=== PATIENT | male | born 1985 | race Caucasian/White ===

== ENCOUNTER 2019-12-10 13:49 | Inpatient (IN) | payer BC ==
[2019-12-10] VITALS (16 sets, daily range): BP systolic 142; BP diastolic 92; PULSE 92; TEMP 99.5; O2SAT 90–100
[~2019-12-10] VITALS: Ht 167.6 cm; Wt 141.4 kg
[~2019-12-10 13:49] MED LIST: CIPRO500 MG PO; FLOMAX 0.40.4 MG/CAP PO; KEPPRA1000 MG PO; NASONEX SPRAY17 GM NS; NORCO 325 MG-51 TAB PO; NORVASC 10MG10 MG PO; ZOFRAN 4MG T4 MG/TAB PO
[2019-12-10] MEDS ORDERED: ZESTRIL 20MG TA20 MG PO (14:42)
[2019-12-10 14:49] LABS: COLLECTION METHOD CLEAN CATCH
[2019-12-10 14:55] LABS: BASO % 0.4 % (0.0-2.0); GRAN # 7.9 (1.4-6.5); GRAN % 80.3 % (42.2-75.2); HEMATOCRIT 43.5 % (42.0-52.0); HEMOGLOBIN 14.8 g/dl (13.5-18.0); LYMPH # 1.1 (1.2-3.4); LYMPH % 11.4 % (20.0-51.0); MEAN CELL VOLUME 85 fl (80.0-100.0); MEAN CORPUSCULAR HEMOGLOBIN 29 pg (27.0-31.0); MEAN CORPUSCULAR HGB CONC 34 g/dl (33.0-37.0); MEAN PLATELET VOLUME 9.5 fl (7.4-10.4); MONO # 0.7 (0.1-0.6); MONO % 7.2 % (1.7-9.3); PLATELET COUNT 238 K/mm3 (130-400); RED BLOOD COUNT 5.12 M/mm3 (4.20-5.60); REDCELL DISTRIBUTION WIDTH-CV 12.8 % (11.5-14.5)
[2019-12-10 15:00] LABS: ALBUMIN 3.6 gm/dL (3.5-5.0); BILIRUBIN,TOTAL 0.6 mg/dL (0.0-1.0); CALCIUM 8.1 mg/dL (8.4-10.2); CREATININE, serum 0.75 (0.66-1.25); POTASSIUM 4.2 mmol/L (3.4-5.0)
[2019-12-10 15:04] LABS: PH 7 (5-8); SQUAMOUS EPITHELIAL 0-2 /hpf; URINE APPEARANCE Clear; URINE BACTERIA None Seen /hpf; URINE BILIRUBIN Negative (NEGATIVE); URINE BLOOD 1+ (NEGATIVE); URINE COLOR Straw; URINE GLUCOSE Negative (NEGATIVE); URINE KETONE Negative (NEGATIVE); URINE LEUKOCYTE ESTERASE Negative (NEGATIVE); URINE NITRATE Negative (NEGATIVE); URINE PROTEIN(semi-quant) 2+ (NEGATIVE); URINE RBC 0-2 /hpf; URINE UROBILINOGEN Negative (NEGATIVE)
[2019-12-10 15:23] LABS: TROPONIN-I 0.168 ng/mL (0.000-0.035)
[2019-12-10 23:23] LABS: C-REACTIVE PROTEIN 6.2 mg/dL (0.0-0.9)
[2019-12-10 23:34] LABS: TROPONIN-I 0.133 ng/mL (0.000-0.035)
[2019-12-11] VITALS (723 sets, daily range): BP systolic 132–170; BP diastolic 77–110; PULSE 95–110; TEMP 97.7–101; O2SAT 76–99
--- NOTE | 2019-12-11 00:30 | NUR ---
PATIENT HAS PAUSES IN BREATHING BRINGING O2 SATS DOWN TO UPPER 80S. STIMULATE SATS RESTORED TO LOWER 90S. PROVIDER CALLED, ORDER FOR HIGH FLOW NC TO REMEDY WITH STIMULATION.
--- NOTE | 2019-12-11 04:30 | NUR ---
PATIENT CONTINUES TO HAVE RESPIRATORY BREAKS, SATS CONINUE TO UPPER 80S, AND B/PS ARE ELEVATING, PROVIDER CALLED, MED ORDER FOR ELEVATED B/PS ABOVE 180 SYSTOLIC, AND MAINTAIN O2 SATS AT 90 OR ABOVE WITH HIGH FLOW NASAL CANNULA AND STIMULATION.
--- NOTE | 2019-12-11 06:34 | NUR ---
Vancomycin Initial Dosing Pharmacy Note Ordering provider: Winston Doty MD Indication/duration: possible PNA, empiric coverage Relevant comorbidities: new onset cardiomegaly with edema LABS: eCrCl ~ 190 mL/min, fever 101, weight 151 kg Recommendation: Loading dose: 1.5 grams given in ED 12/10/19 @ 16:45 followed by 2g at 23:30 Maintenance dose: 1.5 grams Q8H Trough goal: 15-20 ug/mL with first level to be drawn 12/12/19 @ 07:30 Will continue to follow.
[2019-12-11 06:38] LABS: BASO % 0.4 % (0.0-2.0); GRAN # 4.8 (1.4-6.5); GRAN % 86.5 % (42.2-75.2); HEMATOCRIT 43.1 % (42.0-52.0); HEMOGLOBIN 14.3 g/dl (13.5-18.0); LYMPH # 0.4 (1.2-3.4); LYMPH % 7.9 % (20.0-51.0); MEAN CELL VOLUME 88 fl (80.0-100.0); MEAN CORPUSCULAR HEMOGLOBIN 29 pg (27.0-31.0); MEAN CORPUSCULAR HGB CONC 33 g/dl (33.0-37.0); MONO # 0.3 (0.1-0.6); MONO % 4.7 % (1.7-9.3); PLATELET COUNT 213 K/mm3 (130-400); REDCELL DISTRIBUTION WIDTH-CV 13.4 % (11.5-14.5)
[2019-12-11 06:54] LABS: CALCIUM 7.4 mg/dL (8.4-10.2); CHOLESTEROL RISK RATIO 6.9; CREATININE, serum 0.71 (0.66-1.25); POTASSIUM 4.2 mmol/L (3.4-5.0)
[2019-12-11 07:05] LABS: TROPONIN-I 0.112 ng/mL (0.000-0.035)
--- NOTE | 2019-12-11 10:30 | NUR ---
Pt spouse at bedside not wearing mask for droplet precautions - education provided and spouse stated she was not informed of mask requirement when visitng last night. Pt experiencing dyspnea on exertion and requires several minutes after exertion to catch breath - MD Irvin aware Pt experiencing blood tinged nasal drainage - Hospitalist team aware - [place] added to MAR Pt remains alert and oriented x4, confersation appropriate and no drowsyness obseved although pt states "I didnt sleep last night, I wish I could just sleep". No productive presistent cough continues exacerbated by "breathing treatments". Education provided on BiPap and Mechanical Ventilation if respiratory status declines, education provided on on ABG data and indications.
--- NOTE | 2019-12-11 16:40 | NUR ---
SENIOR CONTROL SYSTEMS ENGINEER student met with the patient to complete initial assessment. The patient lives in [place] with his , Gloria. The patient does not use DME and reports independence with ADLs. The patient's PCP is Dr. Fisher and the patient receives medications from [facility] with no difficulties. The patient does not have advanced directives in the EMR. DPOA-HC form provided. The patient plans to return home upon discharge with Gloria providing transportation. There are no additional needs at this time.
[2019-12-11 18:09] LABS: RHEUMATOID FACTOR-SCREEN <15 IU/mL (0-29)
[2019-12-12] VITALS (857 sets, daily range): BP systolic 110–192; BP diastolic 60–124; PULSE 83–105; TEMP 98–99.2; O2SAT 68–100
--- NOTE | 2019-12-12 03:00 | NUR ---
PATIENT CONTINUES TO HAVE LABORED BREATHING, SWEATING 2ND NIGHT, TONIGHT COUGHING BLOODY SPUTUM, COLLECTED AND SENT TO LAB, WILL CONTINUE TO MONITOR
--- NOTE | 2019-12-12 04:20 | NUR ---
PATIENT CONTINUES TO HAVE PAUSES IN RESPIRATORY EFFORT, THEN RAPID BREATHING, TO MAINTAIN SATS OR HAVE TO PERFORM EXTERNAL STIMULATION. PATIENT WILL AWAKEN IMMEDIATELY
[2019-12-12 05:02] LABS: BASO % 0.2 % (0.0-2.0); GRAN # 5.6 (1.4-6.5); GRAN % 85.2 % (42.2-75.2); HEMATOCRIT 47.8 % (42.0-52.0); HEMOGLOBIN 15.4 g/dl (13.5-18.0); LYMPH # 0.5 (1.2-3.4); LYMPH % 8.3 % (20.0-51.0); MEAN CELL VOLUME 89 fl (80.0-100.0); MEAN CORPUSCULAR HEMOGLOBIN 29 pg (27.0-31.0); MEAN CORPUSCULAR HGB CONC 32 g/dl (33.0-37.0); MEAN PLATELET VOLUME 9.1 fl (7.4-10.4); MONO # 0.4 (0.1-0.6); MONO % 5.8 % (1.7-9.3); PLATELET COUNT 226 K/mm3 (130-400); RED BLOOD COUNT 5.37 M/mm3 (4.20-5.60); REDCELL DISTRIBUTION WIDTH-CV 13.5 % (11.5-14.5)
[2019-12-12 05:12] LABS: CREATININE, serum 0.57 (0.66-1.25); POTASSIUM 4.5 mmol/L (3.4-5.0)
--- NOTE | 2019-12-12 07:15 | NUR ---
Pt experiencing increased shortness of breath and dyspnea at rest - worsening from yesterday evening. Pt also states bloody sputum for past 4-5days which has remained unreported or not observed by staff until this AM. Pt did have blood tinged nasal mucous yesterday which was reported to MD Allison when consult was called but pt did not report bloody sputum. MD Irvin contacted at this time and aware of increased respiratory effort and bloody sputum - orders recieved.
--- NOTE | 2019-12-12 08:30 | NUR ---
MD Irvin at bedside - plan is to transfer pt to ICU for higher level of care. Spouse at bedside - all questions answered.
[2019-12-12 09:51] LABS: ARTERIAL BLD GAS O2 SATURATION 95.2 % (92-100); ARTERIAL BLD GAS TCO2 CT 32.4; ARTERIAL BLOOD GAS HCO3 30.9 meq/L (22-26); ARTERIAL BLOOD GAS PO2 74.4 mmHg (80-100); ARTERIAL BLOOD GAS pH 7.41 (7.35-7.45)
--- NOTE | 2019-12-12 10:33 | NUR ---
Initial visit; Patient thanked Science Specialist for looking in on him and offering God's blessings and to keep him in her prayers.
--- NOTE | 2019-12-12 11:55 | NUR ---
Vancomycin Follow-up Pharmacy Note Current regimen: 1.5 g IV q8h Vancomycin trough: 13.1 Adjustments: Increase to 1.75 g IV q8h
[2019-12-13] VITALS (900 sets, daily range): BP systolic 144–202; BP diastolic 84–133; PULSE 69–91; TEMP 97.2–99.3; O2SAT 79–100
[2019-12-13 06:09] LABS: ARTERIAL BLD GAS O2 SATURATION 99.2 % (92-100); ARTERIAL BLD GAS TCO2 CT 33.2; ARTERIAL BLOOD GAS BASE EXCESS 5.4 (-2-2); ARTERIAL BLOOD GAS HCO3 31.6 meq/L (22-26); ARTERIAL BLOOD GAS PCO2 52.6 mmHg (35-45)
[2019-12-13 06:38] LABS: HEMATOCRIT 44.5 % (42.0-52.0); HEMOGLOBIN 14.2 g/dl (13.5-18.0); MEAN CELL VOLUME 90 fl (80.0-100.0); MEAN CORPUSCULAR HEMOGLOBIN 29 pg (27.0-31.0); MEAN CORPUSCULAR HGB CONC 32 g/dl (33.0-37.0); MEAN PLATELET VOLUME 9.4 fl (7.4-10.4); PLATELET COUNT 238 K/mm3 (130-400); RED BLOOD COUNT 4.92 M/mm3 (4.20-5.60); REDCELL DISTRIBUTION WIDTH-CV 13.3 % (11.5-14.5)
[2019-12-13 06:40] LABS: ARTERIAL BLOOD GAS PO2 161.9 mmHg (80-100)
[2019-12-13 07:13] LABS: CALCIUM 8.2 mg/dL (8.4-10.2); CREATININE, serum 0.7 (0.66-1.25); POTASSIUM 4.3 mmol/L (3.4-5.0)
[2019-12-13 07:33] LABS: BAND 23 % (0-10); LYMPHOCYTE 16 % (20.0-51.0); NEUTROPHILS 56 % (42.0-75.2); PLATELET ESTIMATE NORMAL (NORMAL)
[2019-12-13 08:33] LABS: HIV 1/2 Antibodies Non-Reactive; HIV-1p24 Antigen Non-Reactive
--- NOTE | 2019-12-13 11:43 | NUR ---
WAREHOUSE ADMINISTRATIVE ASSISTANT student attended clinical rounds with the team. present. Or Manager consulted. counseling services director will continue to follow.
[2019-12-14] VITALS (545 sets, daily range): BP systolic 125–195; BP diastolic 75–117; PULSE 73–97; TEMP 98.6–99.2; O2SAT 81–100
--- NOTE | 2019-12-14 03:32 | NUR ---
Resting in bed with eyes shut. Tolerating Bipap well; will continue to monitor.
[2019-12-14 06:31] LABS: TB GOLD INTERPRETATION Negative (Negative)
[2019-12-14 08:01] LABS: HEMATOCRIT 44.9 % (42.0-52.0); HEMOGLOBIN 14.6 g/dl (13.5-18.0); MEAN CELL VOLUME 89 fl (80.0-100.0); MEAN CORPUSCULAR HEMOGLOBIN 29 pg (27.0-31.0); MEAN CORPUSCULAR HGB CONC 33 g/dl (33.0-37.0); MEAN PLATELET VOLUME 8.9 fl (7.4-10.4); PLATELET COUNT 235 K/mm3 (130-400); RED BLOOD COUNT 5.02 M/mm3 (4.20-5.60); REDCELL DISTRIBUTION WIDTH-CV 13.2 % (11.5-14.5)
--- NOTE | 2019-12-14 08:08 | NUR ---
Alert, awake, denies pain, dangles at bedside eating breakfast. Wore bipap all night per report. Coughing frequently-productive yellow thick sputum. SPO2 on high flow nasal cannula at 8L-95%. Ntg gtt infusing for HTN.
[2019-12-14 08:28] LABS: CALCIUM 8.1 mg/dL (8.4-10.2); CREATININE, serum 0.7 (0.66-1.25); POTASSIUM 4.4 mmol/L (3.4-5.0)
[2019-12-14 08:46] LABS: BAND 5 % (0-10); LYMPHOCYTE 33 % (20.0-51.0); NEUTROPHILS 53 % (42.0-75.2); PLATELET ESTIMATE NORMAL (NORMAL)
--- NOTE | 2019-12-14 11:54 | NUR ---
The patient is to tranfer to medical floor this day. SOFT SUGAR SUPERVISOR student informed medical floor SW.
--- NOTE | 2019-12-14 12:42 | NUR ---
Report called to [facility]. Pt will transfer to room 359 and continue droplet precautions.
--- NOTE | 2019-12-14 12:43 | NUR ---
Room changed to 316
--- NOTE | 2019-12-14 14:48 | NUR ---
Patient arrived to Room 316 this afternoon with his at his side. Patient is oriented to room; call light; and current plan of care. Reviewed with patient the 24 hour urine testing and the need for specimen container and haines bag on ice. Patient quietly verbalizes understanding. He denies any pain/discomfort. Patient is alert and oriented x 3. Skin w/d. Color pale pink. Lungs diminshed throughout the all prado. Continues to have coarse cough with green sputum production at times. HR strong/regular. Abd soft with bowel sounds x 4 quads. Patient denies any problems with constipation. PPP but difficult to find due to size of feet. Noted 1-2 + edema. Patient denies any needs at this time. oriented to the floor, bathroom and call light system. She verbalizes understanding. Will continue to provide for patients needs. Call light in place. Patient remains on droplet isolation. No other needs at this time
[2019-12-15 00:30] VITALS: BP 137/82; PULSE 79; TEMP 97.9
--- NOTE | 2019-12-15 02:32 | NUR ---
ASSESSMENT COMPLETE. RESTING IN BED. DENIES NEEDS AT THIS TIME.
[2019-12-15 04:26] VITALS: BP 138/87; PULSE 74; TEMP 98.1
[2019-12-15 06:46] LABS: HEMATOCRIT 46.4 % (42.0-52.0); HEMOGLOBIN 14.9 g/dl (13.5-18.0); MEAN CELL VOLUME 89 fl (80.0-100.0); MEAN CORPUSCULAR HEMOGLOBIN 29 pg (27.0-31.0); MEAN CORPUSCULAR HGB CONC 32 g/dl (33.0-37.0); MEAN PLATELET VOLUME 9.1 fl (7.4-10.4); PLATELET COUNT 220 K/mm3 (130-400); RED BLOOD COUNT 5.22 M/mm3 (4.20-5.60)
[2019-12-15 07:00] LABS: CALCIUM 8.4 mg/dL (8.4-10.2); CREATININE, serum 0.88 (0.66-1.25)
[2019-12-15 08:51] VITALS: BP 135/91; PULSE 88; TEMP 98.2
--- NOTE | 2019-12-15 08:58 | NUR ---
PATIENT ASSESSMENT COMPLETED. HE DENIES ANY CHEST PAIN OR SOB. HE SITS AT THE SIDE OF THE BED HE REPORTS THAT HE FEELS ACHY ALL OVER WITH A SLIGHT HEADACHE. MORNING MEDICATIONS PROVIDED. NO OTHER NEEDS AT THIS TIME.
[2019-12-15 10:39] LABS: BAND 6 % (0-10); EOSINOPHIL 2 % (0-4); LYMPHOCYTE 37 % (20.0-51.0); NEUTROPHILS 48 % (42.0-75.2)
[2019-12-15 10:41] LABS: PLATELET ESTIMATE NORMAL (NORMAL)
[2019-12-15 14:21] LABS: CATECHOLAMINES-HRS COLLECTED 24 (()); URINE VOLUME 6.8L (())
[2019-12-15 15:07] VITALS: BP 141/82; PULSE 99; TEMP 98.6
--- NOTE | 2019-12-15 15:21 | NUR ---
Patient has showered and is back sitting at the side of the bed. He denies any further needs at this time. at bedside
--- NOTE | 2019-12-15 19:15 | NUR ---
Received report from day shift nurse. Seen patient awake, sitting in the recliner. With PICC in the right upper arm. Edema noten on bilateral lower extremity. With IFC draining clear, yellow urine. Patient denies any pain. Will continue to monitor.
[2019-12-15 22:07] VITALS: BP 144/84; PULSE 88; TEMP 98.5
[2019-12-16 03:07] VITALS: BP 148/89; PULSE 78; TEMP 98.8
--- NOTE | 2019-12-16 06:59 | NUR ---
Patient was on Bipap the whole night. Switched to O2 at 2lpm via NC this morning. Denies any SOB and pain. He had a lot of urine output. Will endorse to day shift nurse.
[2019-12-16 07:17] LABS: BASO % 0.3 % (0.0-2.0); EOS # 0.3 (0.0-0.7); EOS % 3.5 % (0-4.0); GRAN # 5.8 (1.4-6.5); GRAN % 63.6 % (42.2-75.2); HEMATOCRIT 47.4 % (42.0-52.0); HEMOGLOBIN 15.4 g/dl (13.5-18.0); LYMPH # 2.4 (1.2-3.4); LYMPH % 25.7 % (20.0-51.0); MEAN CELL VOLUME 88 fl (80.0-100.0); MEAN CORPUSCULAR HEMOGLOBIN 29 pg (27.0-31.0); MEAN CORPUSCULAR HGB CONC 33 g/dl (33.0-37.0); MEAN PLATELET VOLUME 9.5 fl (7.4-10.4); MONO # 0.5 (0.1-0.6); MONO % 5.8 % (1.7-9.3); PLATELET COUNT 236 K/mm3 (130-400); RED BLOOD COUNT 5.37 M/mm3 (4.20-5.60)
[2019-12-16 07:27] LABS: CALCIUM 8.6 mg/dL (8.4-10.2); CREATININE, serum 0.85 (0.66-1.25); POTASSIUM 4.1 mmol/L (3.4-5.0)
[2019-12-16 08:14] VITALS: BP 150/89; PULSE 81; TEMP 98
--- NOTE | 2019-12-16 08:33 | NUR ---
Pt assessment complete. Pt sitting up in bed upon entry, he is A/O x4. His breathing is even and unlabored on 1L O2 via NC. Pt denies any SOB at this time. Pt denies nausea. Reports some back pain from laying in bed. Zaida WISEMAN. Isolation precautions in place. No needs at this time. Call light within reach.
[2019-12-16 11:57] VITALS: BP 130/79; PULSE 77; TEMP 98.1
--- NOTE | 2019-12-16 12:06 | NUR ---
Cerda removed per order. Plan to continue to measure urine discussed with patient and his . Pt's O2 sat 97%, took oxygen off to assess for need. has concerns about taking patient off of oxygen d/t Dr. Bryan "saying we have to go home on oxygen". Need for supplemental oxygen discussed with patient and his , not well recepted. Discussed situation with Dr. Calvert who states he will visit with family later.
[2019-12-16] MEDS ORDERED: AMOXICILLIN 8751 TAB PO (12:38)
[2019-12-16] MEDS ORDERED: LASIX 40MG TABL40 MG PO (12:39)
[2019-12-16] MEDS ORDERED: PRINIVIL40 MG PO (12:39)
[2019-12-16] MEDS ORDERED: TOPROL XL100 MG PO (12:39)
--- NOTE | 2019-12-16 15:41 | NUR ---
Discharge instructions and paperwork reviewed with patient and his all questions answered at this time. PICC d/c'd from [facility] by pharmacist in charge. Pt wheeled out at this time.
[2019-12-16] MEDS ORDERED: GLUCOPHAGE500 MG/TAB PO (16:08)
== END 2019-12-16 15:42 | disposition home or self-care (01) | DRG 871 ==
LOC: COL.ER 13:49 → IMCU 15:48 → ICU 15:48 → MEDICAL 12-14 14:16
PROVIDERS: Emergency Medicine; Hospitalist; Internal Medicine Interventional Cardiology; Internal Medicine Pulmonary Disease; Physician Assistant; ADMIT Student in an Organized Health Care Education/Training Program
PROC: 02HV33Z Insertion of Infusion Device into Superior Vena Cava, Percutaneous Approach (ICD-10-PCS; principal; 2019-12-11)
DX: A41.9 Sepsis, unspecified organism (principal); J96.01 Acute respiratory failure with hypoxia; I21.A1 Myocardial infarction type 2; J18.9 Pneumonia, unspecified organism; R04.2 Hemoptysis; I16.1 Hypertensive emergency; E87.1 Hypo-osmolality and hyponatremia; I50.22 Chronic systolic (congestive) heart failure; E87.3 Alkalosis; E66.01 Morbid (severe) obesity due to excess calories; E11.65 Type 2 diabetes mellitus with hyperglycemia; R65.20 Severe sepsis without septic shock; B97.81 Human metapneumovirus as the cause of diseases classified elsewhere; E87.8 Other disorders of electrolyte and fluid balance, not elsewhere classified; I11.0 Hypertensive heart disease with heart failure; R00.0 Tachycardia, unspecified; Z87.891 Personal history of nicotine dependence
CPT/HCPCS: 99223-AI; 99231-AI; 99232-AI; 99233-AI; 99239; C1751; J0360; J0456; J1650; J1885; J1940; J2543; J2920; J2930; J3370; J7040; J7050; Q9967